=== PATIENT | male | born 1995 | race Hispanic/Latino ===

== ENCOUNTER 2017-09-04 17:21 | Emergency (ER) | payer BC, OTHER ==
[2017-09-04] MEDS ORDERED: IBUPROFEN 600 MG TABLET ONE (18:13)
== END 2017-09-04 19:12 | disposition home or self-care (01) ==
LOC: EDH 17:21
DX: M54.6 Pain in thoracic spine (principal); J30.9 Allergic rhinitis, unspecified; M41.9 Scoliosis, unspecified
CPT/HCPCS: 72070

== ENCOUNTER 2017-09-10 08:01 | Emergency (ER) | payer SELFPAY | END 2017-09-10 08:26 | disposition home or self-care (01) | LOC: EDH 08:01 | DX: S39.011A Strain of muscle, fascia and tendon of abdomen, initial encounter (principal); Z98.890 Other specified postprocedural states; X58.XXXA Exposure to other specified factors, initial encounter; Y93.89 Activity, other specified; Y92.89 Other specified places as the place of occurrence of the external cause; Y99.8 Other external cause status | CPT/HCPCS: 99281 ==

== ENCOUNTER 2018-02-28 02:33 | Emergency (ER) | payer SELFPAY | END 2018-02-28 02:53 | disposition home or self-care (01) | LOC: EDH 02:33 | DX: Z02.83 Encounter for blood-alcohol and blood-drug test (principal) ==

== ENCOUNTER 2018-09-02 14:36 | Emergency (ER) | payer SELFPAY ==
[2018-09-02 15:49] LABS: RAPID GROUP A STREP NEGATIVE (NEGATIVE)
== END 2018-09-02 16:16 | disposition home or self-care (01) ==
LOC: EDH 14:36
DX: J06.9 Acute upper respiratory infection, unspecified (principal); R11.10 Vomiting, unspecified
CPT/HCPCS: 71045; 87804; 87880

== ENCOUNTER 2018-11-27 15:03 | Emergency (ER) | payer SELFPAY | END 2018-11-27 16:08 | disposition home or self-care (01) | LOC: EDH 15:03 | DX: L03.112 Cellulitis of left axilla (principal) ==

== ENCOUNTER 2019-08-01 07:53 | Emergency (ER) | payer SELFPAY ==
[2019-08-01] MEDS ORDERED: IBUPROFEN 400 MG TABLET ONE (08:28)
[2019-08-01] MEDS ORDERED: GUAIFENESIN-DM 200/20 MG 10 ML ONE (08:28)
== END 2019-08-01 08:37 | disposition home or self-care (01) ==
LOC: EDH 07:53
DX: M94.0 Chondrocostal junction syndrome [Tietze] (principal); R05 Cough; R19.7 Diarrhea, unspecified
CPT/HCPCS: 71045

== ENCOUNTER 2019-08-09 19:07 | Emergency (ER) | payer SELFPAY | END 2019-08-09 19:30 | disposition home or self-care (01) | LOC: EDH 19:07 | DX: J06.9 Acute upper respiratory infection, unspecified (principal); Z72.0 Tobacco use | CPT/HCPCS: 99281 ==

== ENCOUNTER 2019-10-19 10:48 | Emergency (ER) | payer OTHER, SELFPAY | END 2019-10-19 12:00 | disposition home or self-care (01) | LOC: EDH 10:48 | DX: J06.9 Acute upper respiratory infection, unspecified (principal); Z20.828 Contact with and (suspected) exposure to other viral communicable diseases | CPT/HCPCS: 36415; 87635 ==

== ENCOUNTER 2019-11-16 09:24 | Emergency (ER) | payer OTHER, SELFPAY ==
[2019-11-16] MEDS ORDERED: TETANUS/DIPHTHERIA TOXOID [ADULT] 0.5 ML VIAL IM ONE (09:36)
== END 2019-11-16 10:05 | disposition home or self-care (01) ==
LOC: EDH 09:24
DX: S91.332A Puncture wound without foreign body, left foot, initial encounter (principal); W45.0XXA Nail entering through skin, initial encounter; Y93.89 Activity, other specified; Y92.89 Other specified places as the place of occurrence of the external cause; Y99.8 Other external cause status
CPT/HCPCS: 73620; 90471; 90714

== ENCOUNTER 2020-02-17 11:42 | Emergency (ER) | payer SELFPAY ==
[2020-02-17] MEDS ORDERED: ACETAMINOPHEN 325 MG TAB ONE (12:28)
== END 2020-02-17 12:42 | disposition home or self-care (01) ==
LOC: EDH 11:42
DX: S40.861A Insect bite (nonvenomous) of right upper arm, initial encounter (principal); W57.XXXA Bitten or stung by nonvenomous insect and other nonvenomous arthropods, initial encounter; Y93.89 Activity, other specified; Y92.89 Other specified places as the place of occurrence of the external cause; Y99.8 Other external cause status

== ENCOUNTER 2020-05-13 23:29 | Emergency (ER) | payer OTHER ==
[2020-05-13] MEDS ORDERED: TETANUS/DIPHTHERIA TOXOID [ADULT] 0.5 ML VIAL IM ONE (23:58)
[2020-05-13] MEDS ORDERED: SODIUM CHLORIDE 0.9% 1000ML 1,000 ML IV ONE (23:58)
[2020-05-14 00:28] LABS: BASOPHILS % (AUTO) 0.3 % (0.0-5.0); CREATININE 0.9 mg/dL (0.5-1.5); EOSINOPHILS % (AUTO) 0.2 % (0.0-8.0); HEMATOCRIT 43.2 % (42-54); MEAN CORPUSCULAR HEMOGLOBIN 29.6 pg (27.0-33.0); MEAN CORPUSCULAR VOLUME 86.9 fL (79-99); MONOCYTES % (AUTO) 4.4 % (3.0-13.0); NEUTROPHILS % (AUTO) 70.7 % (40.0-77.0); PLATELET COUNT (AUTO) 268 K/uL (130-400); POTASSIUM 3.5 mmol/L (3.5-5.1); RED BLOOD CELL COUNT(AUTO) 4.97 MIL/uL (4.50-6.20); RED CELL DISTRIBUTION WIDTH 11.7 % (11.0-15.5)
[2020-05-14 00:32] LABS: BILIRUBIN,TOTAL 0.4 mg/dL (0.2-1.0); TOTAL PROTEIN, SERUM 7.8 g/dL (6.0-8.3)
[2020-05-14 00:51] LABS: INR 0.93 (0.85-1.15); PARTIAL THROMBOPLASTIN TIME 27.3 SEC (26.3-35.5); PROTHROMBIN TIME 10.1 SEC (9.6-11.6)
[2020-05-14] MEDS ORDERED: OCTYL 2-CYANOACRYLATE 1 EACH TP ONE (02:11)
[2020-05-14 02:48] LABS: APPEARANCE,URINE Clear (CLEAR); BILIRUBIN,URINE Negative (NEGATIVE); COLOR,URINE Yellow (YELLOW); GLUCOSE, URINE (UA) Negative (NEGATIVE); KETONES,URINE Negative (NEGATIVE); LEUKOCYTE ESTERASE ,URINE Negative (NEGATIVE); NITRATE,URINE Negative (NEGATIVE); OCCULT BLOOD,URINE Trace (NEGATIVE); PROTEIN,URINE Negative (NEGATIVE); UROBILINOGEN,URINE 0.2 mg/dL (0.2-1.0)
[2020-05-14 03:01] LABS: AMPHET/METH SCREEN,URINE NEGATIVE (NEGATIVE); BARBITURATE SCREEN, URINE NEGATIVE (NEGATIVE); BENZODIAZEPINES SCREEN,URINE NEGATIVE (NEGATIVE); CANNABINOID SCREEN,URINE NEGATIVE (NEGATIVE); COCAINE SCREEN,URINE NEGATIVE (NEGATIVE); OPIATE SCREEN,URINE NEGATIVE (NEGATIVE); PHENCYCLIDINE SCREEN,URINE NEGATIVE (NEGATIVE)
[2020-05-14 03:04] LABS: BACTERIA,URINE None Seen /HPF (None Seen); RBC,URINE None Seen /HPF (0-1); WBC,URINE None Seen /HPF (0-1)
[2020-05-14] MEDS ORDERED: CEFAZOLIN SODIUM 1 GM VIAL ONE (03:33)
== END 2020-05-14 04:01 | disposition home or self-care (01) ==
LOC: EDH 23:29
DX: S01.81XA Laceration without foreign body of other part of head, initial encounter (principal); S91.001A Unspecified open wound, right ankle, initial encounter; S20.229A Contusion of unspecified back wall of thorax, initial encounter; S10.93XA Contusion of unspecified part of neck, initial encounter; W17.89XA Other fall from one level to another, initial encounter; Y93.89 Activity, other specified; Y92.89 Other specified places as the place of occurrence of the external cause; Y99.8 Other external cause status
CPT/HCPCS: 12011; 29515; 36415; 70450; 71045; 72125; 72170; 73610; 80053; 80305; 81001; 83605; 85025; 85610; 85730; 90471; 90714; 96361; 96365; 99285; J0690; J7030

== ENCOUNTER 2020-05-14 23:19 | Emergency (ER) | payer OTHER ==
[2020-05-15] MEDS ORDERED: CEFTRIAXONE SODIUM 1 GM ONE (00:34)
[2020-05-15] MEDS ORDERED: CLINDAMYCIN 600 MG/D5% WATER 50 ML IV ONE (00:34)
[2020-05-15] MEDS ORDERED: SODIUM CHLORIDE 0.9% 50 ML IV ONE (00:35)
== END 2020-05-15 01:58 | disposition home or self-care (01) ==
LOC: EDH 23:19
DX: S01.81XD Laceration without foreign body of other part of head, subsequent encounter (principal); L03.211 Cellulitis of face; Z86.19 Personal history of other infectious and parasitic diseases; X58.XXXD Exposure to other specified factors, subsequent encounter
CPT/HCPCS: 96365; 96375; 99284; J0696; J3490

== ENCOUNTER 2021-03-24 06:55 | Emergency (ER) | payer OTHER, SELFPAY ==
[~2021-03-24] VITALS: Ht 180.3 cm; Wt 61.2 kg
[2021-03-24 06:57] VITALS: BP 104/87
[2021-03-24] MEDS ORDERED: IBUPROFEN 800 MG TAB ONE (08:26)
[2021-03-24] MEDS ORDERED: IBUPROFEN 600 MG TABLET ONE (08:41)
[2021-03-24] MEDS ORDERED: IBUP-2088 PO (10:08)
[2021-03-24] MEDS ORDERED: IBUPROFEN 600 MG TABLET PO SCH (10:13)
== END 2021-03-24 10:57 | disposition home or self-care (01) ==
LOC: EDH 06:55
DX: J06.9 Acute upper respiratory infection, unspecified (principal); Z20.822 Contact with and (suspected) exposure to COVID-19; Z79.1 Long term (current) use of non-steroidal anti-inflammatories (NSAID)
CPT/HCPCS: 71045; 87635; 87880; 99284; C9803

== ENCOUNTER 2023-03-24 11:25 | Emergency (ER) | payer OTHER ==
[~2023-03-24] VITALS: Ht 175.3 cm; Wt 61.2 kg
[~2023-03-24 11:25] MED LIST: IBUP-2088 PO
[2023-03-24 12:10] VITALS: BP 106/74; PULSE 66; RESP 16; O2SAT 97
== END 2023-03-24 13:01 | disposition left against medical advice (07) ==
LOC: EDH 11:25
DX: R10.9 Unspecified abdominal pain (principal); Z53.21 Procedure and treatment not carried out due to patient leaving prior to being seen by health care provider
CPT/HCPCS: 99281

== ENCOUNTER 2023-09-15 11:28 | Emergency (ER) | payer OTHER ==
[~2023-09-15] VITALS: Ht 177.8 cm; Wt 63.5 kg
[2023-09-15 13:10] VITALS: BP 119/64; PULSE 81; RESP 18; O2SAT 98
[2023-09-15] MEDS ORDERED: AMOX-426 PO (13:33)
== END 2023-09-15 13:53 | disposition home or self-care (01) ==
LOC: EDH 11:28
DX: Z90.49 Acquired absence of other specified parts of digestive tract (principal); Z48.815 Encounter for surgical aftercare following surgery on the digestive system; Z98.890 Other specified postprocedural states

== ENCOUNTER 2023-11-13 20:21 | Emergency (ER) | payer OTHER ==
[~2023-11-13] VITALS: Ht 175.3 cm; Wt 61.2 kg
[~2023-11-13 20:21] MED LIST changes: +AMOX-426 PO; -IBUP-2088 PO
[2023-11-13 20:22] VITALS: BP 124/73; PULSE 104; RESP 20
== END 2023-11-13 20:46 | disposition home or self-care (01) ==
LOC: EDH 20:21
DX: S01.01XD Laceration without foreign body of scalp, subsequent encounter (principal); Z48.02 Encounter for removal of sutures; Z90.89 Acquired absence of other organs; X58.XXXD Exposure to other specified factors, subsequent encounter

== ENCOUNTER 2024-09-29 17:30 | Emergency (ER) | payer SELFPAY ==
[~2024-09-29] VITALS: Ht 175.3 cm; Wt 68.0 kg
--- NOTE | 2024-09-29 17:54 | ERN ---
General Chief Complaint: Eye Problems Stated Complaint: LEFT EYE ISSUE Time Seen by MD: 17:30 Time Seen by Midlevel: 17:30 Source: patient History of Present Illness Initial Comments Patient is a 29-year-old male presenting to the emergency department with a foreign body sensation to his left eye. He noticed some redness and continued pain so he decided to report to the ER for further evaluation. He does report working outside and believes he may have a foreign body lodged in his eye. Denies any other symptoms at this time. Allergies: Coded Allergies: No Known Allergies (Unverified Allergy, Unknown, 11/27/18) No Known Drug Allergies (Unverified Allergy, Unknown, 10/20/19) Home Meds Active Scripts Amoxicillin/Potassium Clav (Augmentin 500-125 Tablet) 500 Mg-125 Mg Tablet, 1 EACH PO QID for 10 Days, #40 TAB Prov:JAMISON SINGH Jr. [employer] 09/15/23 Past Medical History Past Medical History: No Pertinent History, Unknown Medical History Other: UNABLE TO OBTAIN HX PT DISORIENTED Past Surgical History: Appendectomy Surgical History Other: UNKNOWN Social History Social History: Negative, Lives with family ROS Dictation CONSTITUTIONAL: Negative except for HPI HEAD/FACE: Negative except for HPI EENT: Negative except for HPI RESPIRATORY: Negative except for HPI GASTROINTESTINAL/ABDOMINAL: Negative except for HPI GENITOURINARY: Negative except for HPI MUSCULOSKELETAL: Negative except for HPI INTEGUMENTARY: Negative except for HPI NEUROLOGICAL/PSYCH: Negative except for HPI HEMATOLOGIC/LYMPHATIC: Negative except for HPI All Systems Negative, Except as noted above. 13 point review of systems assessed and all negative except for above. Physical Exam Physical Exam Dictation PHYSICAL EXAM: GENERAL: alert,, awake oriented x 3 HEENT: EOMI, Sclera non icteric, moist mucosa, mild subconjunctival erythema NECK: Supple, no JVD, trachea midline LUNGS: Clear breath sounds bilaterally. No wheezes HEART: Regular rate and rhythm. Normal S1 and S2, without murmurs ABD: Abdomen soft, nontender. Bowel sounds present EXT: No clubbing or cyanosis, NEURO: Alert and oriented to person, follows commands MDM MDM: Patient is a 29-year-old male presenting with left eye pain and irritation. Upon inspection with the naked eye there is some mild conjunctival erythema however there are no signs of blepharitis or periorbital cellulitis. There was no abnormal discharge. Pupils are equal and reactive light bilaterally. No obvious sign of a foreign body. Tetracaine was applied and left eye was stained with the 1st and strep. The left eye was visualized under UV light your with lamp. No evidence of corneal abrasion or foreign body was visualized. Patient was started on eyedrops empirically and was advised follow up PCP in 2-3 days repeat evaluation. Differential diagnosis: Corneal abrasion, hordeolum, conjunctivitis There are no social concerns with this patient. Prescription drug management Prescriptions will include: None Medical management and examination interpretation discussions were had by vt wi th other qualified healthcare professionals as indicated for the patient's care. ED Course Orders Procedure Category Date Status Time Fluorescein Sodium PHA 09/29/24 In Process (Gdxef-Y-Igqxf At) 18:00 Tetracaine Hcl PHA 09/29/24 In Process (Pontocaine 0.5% 18:00 Fluorescein Sodium PHA 09/29/24 Complete (Wncik-Q-Zynxi At) 17:41 Tetracaine Hcl PHA 09/29/24 Complete (Pontocaine 0.5% 17:41 Tobramycin PHA 09/29/24 Logged Sulf/Dexamethasone 18:00 Current Medications Medications (Trade) Dose Ordered Sig/Katie Route PRN Reason Start Time Stop Time Status Last Admin Dose Admin Fluorescein Sodium (Bltrr-J-Etvgt At) 1 strip ONCE OP 09/29/24 18:00 10/29/24 17:59 Fluorescein Sodium (Rlunm-W-Faejk At) 1 strip STK-MED ONCE .ROUTE 09/29/24 17:41 09/29/24 17:41 DC Tetracaine HCl (Pontocaine 0.5% Ophth Soln) 1 OR 2 DROPS ONCE OP 09/29/24 18:00 10/29/24 17:59 Tetracaine HCl (Pontocaine 0.5% Ophth Soln) 20 drop STK-MED ONCE .ROUTE 09/29/24 17:41 09/29/24 17:42 DC Tobramycin/ Dexamethasone (TobraDEX EYE DROPS) 2 drop ONCE OS 09/29/24 18:00 10/29/24 17:59 UNV Vital Signs Date Time Temp Pulse Resp B/P (MAP) Pulse Ox O2 Delivery O2 Flow Rate FiO2 09/29/24 17:39 97.9 86 16 110/45 98 Room Air DX & DISP Disposition: Discharge Departure Impression: Primary Impression: Left eye pain Additional Impression: Redness of left eye Condition: Stable Referrals: SELF,REFERRAL (PCP) I have reviewed the case, and I agree with, Diagnosis and Plan I performed the substantive portion of the visit. I have reviewed and personally made and approve the management plan that is documented in the note by myself or the BRITTA. I acknowledge for responsibility for the patient's management plan. CINDY LOMBARDO Sep 29, 2024 17:54
[2024-09-29] MEDS: TETRACAINE HCL 0.5% 4 ML OPHTH SOLN ONE (19:09)
[2024-09-29] MEDS: FLUORESCEIN SODIUM 1 STRIP STRIP ONE (19:09)
[2024-09-29] MEDS: FLUORESCEIN SODIUM 1 STRIP STRIP OP SCH (19:09)
[2024-09-29] MEDS: TETRACAINE HCL 0.5% 4 ML OPHTH SOLN OP SCH (19:10)
[2024-09-29 19:11] VITALS: BP 110/45; PULSE 86; RESP 16; TEMP 97.9; O2SAT 98
[2024-09-29] MEDS: TobRAMYCin/DEXAmethASONE OPTH SUSP 2.5 ML BOT OS SCH (20:05)
== END 2024-09-29 20:07 | disposition home or self-care (01) ==
LOC: EDH 17:30
DX: H57.12 Ocular pain, left eye (principal); H57.89 Other specified disorders of eye and adnexa; Z79.899 Other long term (current) drug therapy; Z90.49 Acquired absence of other specified parts of digestive tract
CPT/HCPCS: 99283